=== PATIENT | female | born 1970 | race Caucasian/White ===

== ENCOUNTER → 2020-10-25 | Outpatient (CLI) | payer BC, OTHER ==
[~2020-10-25] MED LIST: ARNUITY ELLIP100 MCG INH; ASPIR-LOW81 MG PO; AZATHIOPRINE50 MG PO; BUSPIRONE HCL15 MG PO; CETIRIZINE HCL10 MG PO; CYCLOBENZAPRINE10 MG PO; CYMBALTA 30 MG30 MG PO; DESYREL 50 MG T50 MG PO; ELAVIL 25 MG TA25 MG PO; ELAVIL PO; FLEXARIL PO; FLEXERIL 10 MG10 MG PO; FLONASE 0.05% N16 GM; HYDROCORT PO; IMURAN50 MG PO; INDERAL LA80 MG PO; LOPERAMIDE2 MG PO; LORTAB 7.5-3251 EACH PO; NAPROXEN SODIU220 M1 PO; NITROSTAT 0.40.4 MG SL; NORVASC 5 MG TAB5 MG PO; OMEPRAZOLE40 MG PO; PERCOCET 10-321 EACH PO; PHENERGAN 25 MG25 M1 PO; PROAIR HFA8.5 GM INH; STELARA90 MG/1 ML SQ; THERAGRAN TAB1 EA PO; TOPAMAX100 MG PO; TOPAMAX200 MG PO; TOPROL XL50 MG PO; VISTARIL 50 MG50 MG PO; ZANTAC 150 MG150 MG PO; ZANTAC150 MG PO; ZOCOR20 MG PO
== END ==
LOC: KOH-I 14:16
DX: M25.561 Pain in right knee (principal); M25.461 Effusion, right knee
CPT/HCPCS: 73700

== ENCOUNTER → 2020-12-03 | Outpatient (CLI) | payer BC, OTHER ==
[~2020-12-03] MED LIST changes: +HYDROCODON-ACE1 EAC2 PO; +PROAIR DIGIHAL90 MCG INH
== END ==
LOC: KOH-I 08:34
DX: S83.241A Other tear of medial meniscus, current injury, right knee, initial encounter (principal)
CPT/HCPCS: 73721

== ENCOUNTER → 2020-12-26 | Outpatient (CLI) | payer BC, OTHER ==
[2020-12-26 10:21] LABS: HEMOGLOBIN 13.5 gm/dl (12.3-15.3); RED BLOOD COUNT 4.57 M/UL (4.00-5.10); WHITE BLOOD COUNT 10.3 K/UL (4.5-11.0)
== END ==
LOC: OPSV2 08:58
PROVIDERS: Orthopaedic Surgery
DX: Z01.818 Encounter for other preprocedural examination (principal); R91.8 Other nonspecific abnormal finding of lung field
CPT/HCPCS: 36415; 71046; 80048; 85025

== ENCOUNTER → 2020-12-27 | Day surgery (SDC) | payer BC, OTHER ==
[~2020-12-27] VITALS: Ht 157.5 cm; Wt 113.9 kg
== END | disposition home or self-care (01) ==
LOC: OR 07:11
DX: S83.241A Other tear of medial meniscus, current injury, right knee, initial encounter (principal); S83.281A Other tear of lateral meniscus, current injury, right knee, initial encounter; S83.511A Sprain of anterior cruciate ligament of right knee, initial encounter; M94.261 Chondromalacia, right knee; I10 Essential (primary) hypertension; E78.5 Hyperlipidemia, unspecified; I25.10 Atherosclerotic heart disease of native coronary artery without angina pectoris; G43.909 Migraine, unspecified, not intractable, without status migrainosus; F32.9 Major depressive disorder, single episode, unspecified; F41.9 Anxiety disorder, unspecified; K21.9 Gastro-esophageal reflux disease without esophagitis; K51.90 Ulcerative colitis, unspecified, without complications; M79.7 Fibromyalgia; E66.01 Morbid (severe) obesity due to excess calories; Z68.42 Body mass index [BMI] 45.0-49.9, adult; Z88.5 Allergy status to narcotic agent; Z88.2 Allergy status to sulfonamides; Z88.6 Allergy status to analgesic agent; Z79.899 Other long term (current) drug therapy; W19.XXXA Unspecified fall, initial encounter
CPT/HCPCS: J0171; J0690; J1100; J1170; J2001; J2250; J2405; J2704; J3010; J7120

== ENCOUNTER → 2021-01-09 | Outpatient (CLI) | payer BC, OTHER | LOC: LAB 09:53 | DX: K51.20 Ulcerative (chronic) proctitis without complications (principal) | CPT/HCPCS: 36415; 83993 ==

== ENCOUNTER → 2021-02-28 | Outpatient (CLI) | payer BC, OTHER ==
[2021-02-28 13:56] LABS: HEMOGLOBIN 13.9 gm/dl (12.3-15.3); RED BLOOD COUNT 4.59 M/UL (4.00-5.10); WHITE BLOOD COUNT 12.6 K/UL (4.5-11.0)
== END ==
LOC: OPSV 02-12 13:00
PROVIDERS: Internal Medicine Gastroenterology
DX: K51.50 Left sided colitis without complications (principal); K51.20 Ulcerative (chronic) proctitis without complications
CPT/HCPCS: 36415; 80053; 85025; 86140; 96365; J3380; J7050

== ENCOUNTER → 2021-03-14 | Outpatient (CLI) | payer BC, OTHER ==
[2021-03-14 14:03] LABS: HEMOGLOBIN 14.2 gm/dl (12.3-15.3); RED BLOOD COUNT 4.72 M/UL (4.00-5.10); WHITE BLOOD COUNT 14.1 K/UL (4.5-11.0)
== END ==
LOC: OPSV 12:00
PROVIDERS: Internal Medicine Gastroenterology
DX: K51.50 Left sided colitis without complications (principal); K51.20 Ulcerative (chronic) proctitis without complications
CPT/HCPCS: 36415; 80053; 85025; 86140; 96365; J3380; J7030

== ENCOUNTER → 2021-05-13 | Outpatient (CLI) | payer OTHER ==
[~2021-05-13] VITALS: Ht 157.5 cm; Wt 113.9 kg
[2021-05-13 12:22] LABS: HEMOGLOBIN 13.4 gm/dl (12.3-15.3); RED BLOOD COUNT 4.54 M/UL (4.00-5.10); WHITE BLOOD COUNT 12.9 K/UL (4.5-11.0)
== END ==
LOC: OPSV 11:52
PROVIDERS: Internal Medicine Gastroenterology
DX: K51.50 Left sided colitis without complications (principal); K51.20 Ulcerative (chronic) proctitis without complications
CPT/HCPCS: 36415; 80053; 85025; 86140; 96365; J3380; J7030

== ENCOUNTER 2021-06-16 13:05 | Emergency (ER) | payer OTHER ==
[2021-06-16 14:00] LABS: HEMOGLOBIN 12.6 gm/dl (12.3-15.3); RED BLOOD COUNT 4.26 M/UL (4.00-5.10); WHITE BLOOD COUNT 14.5 K/UL (4.5-11.0)
[2021-06-16 14:09] LABS: BORDETELLA PARAPERTUSSIS Not Detected (Not Detectd); BORDETELLA PERTUSSIS Not Detected (Not Detectd); CHLAMYDIA PNEUMONIAE Not Detected (Not Detectd); CORONAVIRUS HKU1 Not Detected (Not Detectd); CORONAVIRUS NL63 Not Detected (Not Detectd); CORONAVIRUS OC43 Not Detected (Not Detectd); CORONOAVIRUS 229E Not Detected (Not Detectd); HUMAN METAPNEUMOVIRUS Not Detected (Not Detectd); HUMAN RHINOVIRUS/ENTEROVIRUS Not Detected (Not Detectd); INFLUENZA A Not Detected (Not Detectd); INFLUENZA B Not Detected (Not Detectd); MYCOPLASMA PNEUMONIAE Not Detected (Not Detectd); PARAINFLUENZA VIRUS 1 Not Detected (Not Detectd); PARAINFLUENZA VIRUS 2 Not Detected (Not Detectd); PARAINFLUENZA VIRUS 3 Not Detected (Not Detectd); PARAINFLUENZA VIRUS 4 Not Detected (Not Detectd); RESPIRATORY SYNCYTIAL VIRUS Not Detected (Not Detectd)
[2021-06-16 15:57] LABS: SARS-CoV-2 DETECTED (Not Detectd)
== END 2021-06-16 16:50 | disposition left against medical advice (07) ==
LOC: ER1 13:05
PROVIDERS: Physician Assistant Medical
DX: U07.1 COVID-19 (principal); F17.210 Nicotine dependence, cigarettes, uncomplicated; Z90.710 Acquired absence of both cervix and uterus; Z88.2 Allergy status to sulfonamides
CPT/HCPCS: 71045; 80053; 85025; 87633; 99283

== ENCOUNTER → 2021-06-18 | Outpatient (CLI) | payer OTHER | LOC: EROP 12:47 | DX: U07.1 COVID-19 (principal); Z23 Encounter for immunization; D84.9 Immunodeficiency, unspecified | CPT/HCPCS: M0247; Q0247 ==

== ENCOUNTER → 2021-07-12 | Outpatient (CLI) | payer OTHER ==
[~2021-07-12] VITALS: Ht 157.5 cm; Wt 113.9 kg
[2021-07-12 11:53] LABS: RED BLOOD COUNT 4.53 M/UL (4.00-5.10); WHITE BLOOD COUNT 11.1 K/UL (4.5-11.0)
[2021-07-15 20:11] LABS: QUANTIFERON MITOGEN VALUE >10.00 IU/mL (.); QUANTIFERON NIL VALUE 0.06 IU/mL (.); QUANTIFERON TB1 AG VALUE 0.05 IU/mL (.); QUANTIFERON TB2 AG VALUE 0.08 IU/mL (.); QUANTIFERON-TB GOLD PLUS Negative (Negative)
== END ==
LOC: OPSV 07-08 12:00
PROVIDERS: Internal Medicine Gastroenterology
DX: K51.50 Left sided colitis without complications (principal); K51.20 Ulcerative (chronic) proctitis without complications
CPT/HCPCS: 80053; 85025; 86140; 96365; J3380; J7050

== ENCOUNTER → 2021-09-06 | Outpatient (CLI) | payer OTHER ==
[~2021-09-06] VITALS: Ht 157.5 cm; Wt 113.9 kg
[2021-09-06 11:29] LABS: HEMOGLOBIN 13.3 gm/dl (12.3-15.3); RED BLOOD COUNT 4.46 M/UL (4.00-5.10); WHITE BLOOD COUNT 10.7 K/UL (4.5-11.0)
== END ==
LOC: OPSV 10:00
PROVIDERS: Internal Medicine Gastroenterology
DX: K51.50 Left sided colitis without complications (principal); K51.20 Ulcerative (chronic) proctitis without complications
CPT/HCPCS: 80053; 85025; 86140; 96365; J3380; J7030

== ENCOUNTER → 2021-11-01 | Outpatient (CLI) | payer OTHER ==
[~2021-11-01] VITALS: Ht 157.5 cm; Wt 113.9 kg
[2021-11-01 11:18] LABS: HEMOGLOBIN 14.4 gm/dl (12.3-15.3); RED BLOOD COUNT 4.73 M/UL (4.00-5.10)
== END ==
LOC: OPSV 10:41
PROVIDERS: Internal Medicine Gastroenterology
DX: K51.50 Left sided colitis without complications (principal); K51.20 Ulcerative (chronic) proctitis without complications
CPT/HCPCS: 80053; 85025; 86140; 96365; J3380; J7030

== ENCOUNTER → 2021-12-27 | Outpatient (CLI) | payer OTHER ==
[~2021-12-27] VITALS: Ht 157.5 cm; Wt 113.9 kg
[2021-12-27 11:14] LABS: HEMOGLOBIN 14.1 gm/dl (12.3-15.3); RED BLOOD COUNT 4.55 M/UL (4.00-5.10); WHITE BLOOD COUNT 11.8 K/UL (4.5-11.0)
== END ==
LOC: OPSV 10:46
PROVIDERS: Internal Medicine Gastroenterology
DX: K51.50 Left sided colitis without complications (principal); K51.20 Ulcerative (chronic) proctitis without complications
CPT/HCPCS: 80053; 85025; 86140; 96365; J3380; J7050